=== PATIENT | male | born 2000 | race Two or more races ===

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

== ENCOUNTER 2020-01-11 17:35 | Emergency (ER) | payer OTHER ==
[~2020-01-11] VITALS: Ht 170.2 cm; Wt 86.2 kg
[2020-01-11 17:41] VITALS: BP 149/84
--- NOTE | 2020-01-11 18:51 | NUR ---
Pt aware of plan, R eye soaked with petroleum and saline as ordered
--- NOTE | 2020-01-11 19:10 | NUR ---
Bedside/warm hand off given to Linda
--- NOTE | 2020-01-11 19:22 | NUR ---
PT RECEIVED FROM CLAUDINE MCCORMACK. NO RESP DISTRESS. EYE STILL BEING SOAKED WITH NS
--- NOTE | 2020-01-11 20:00 | NUR ---
Patient does not wish to proceed with medical care recommended by PEARL ODELL. Patient given information related to possible complications, up to and including , which could occur as a result of leaving the hospital at this time. Patient verbalizes understanding of risks involved due to leaving against medical advice. Patient has signed AMA form.
== END 2020-01-11 20:01 | disposition left against medical advice (07) ==
LOC: ER 17:38
DX: S05.8X1A Other injuries of right eye and orbit, initial encounter (principal); X58.XXXA Exposure to other specified factors, initial encounter; Y93.89 Activity, other specified; Y92.89 Other specified places as the place of occurrence of the external cause; Y99.8 Other external cause status

== ENCOUNTER 2020-01-12 06:03 | Emergency (ER) | payer MEDICAID, OTHER ==
[~2020-01-12] VITALS: Ht 175.3 cm; Wt 81.6 kg
[2020-01-12 06:23] VITALS: BP 139/73
[2020-01-12] MEDS ORDERED: ERYTHROMYCIN BASE OPHTH 3.5 GM TUBE OP ONE (06:30)
[2020-01-12] MEDS ORDERED: CIPROFLOXACIN HCL 0.3% 5 ML BOTTLE RIGHTEYE STA (06:31)
--- NOTE | 2020-01-12 06:40 | NUR ---
PATIENT CAME TO ER BED 9 C/O RIGHT EYE ISSUE. PATIENT STATES THAT HE WAS USING SUPER-GLUE WHEN HE TRIED TO OPEN THE CONTAINER, THE SUPER-GLUE RICHOCHETTED INTO HIS RIGHT EYE. PATIENT STATES THAT HE IS UNABLE TO OPEN HIS RIGHT EYE. AAOX4. NO SOB. BREATHING EVENLY AND UNLABORED ON ROOM AIR.
[2020-01-12] MEDS ORDERED: ERYTHROMYCIN BASE OPHTH 3.5 GM TUBE ONE (06:42)
--- NOTE | 2020-01-12 07:00 | NUR ---
PHARMACY CALLED FOR OFLAXCIN MEDICATION
[2020-01-12] MEDS ORDERED: OFLOXACIN 0.3% OPHTH 5 ML BOTTLE RIGHTEYE ONE (07:30)
--- NOTE | 2020-01-12 07:31 | NUR ---
Patient discharged to home in stable condition. Written and verbal after care instructions given. Patient verbalizes understanding of instruction.
== END 2020-01-12 07:32 | disposition home or self-care (01) ==
LOC: ER 06:04
DX: S05.8X1A Other injuries of right eye and orbit, initial encounter (principal); X58.XXXA Exposure to other specified factors, initial encounter; Y93.89 Activity, other specified; Y92.89 Other specified places as the place of occurrence of the external cause; Y99.8 Other external cause status

== ENCOUNTER 2020-01-14 20:42 | Emergency (ER) | payer MEDICAID ==
[~2020-01-14] VITALS: Ht 175.3 cm; Wt 81.6 kg
[2020-01-14 20:49] VITALS: BP 133/81
[2020-01-14] MEDS ORDERED: HYDROCODONE/APAP 5/325MG 1 EACH TABLET ONE (21:09)
[2020-01-14] MEDS ORDERED: HYDROCODONE/APAP 5/325MG 1 EACH TABLET PO ONE (21:30)
== END 2020-01-14 21:11 | disposition home or self-care (01) ==
LOC: ER 20:42
DX: L05.91 Pilonidal cyst without abscess (principal)

== ENCOUNTER 2020-01-17 15:26 | Emergency (ER) | payer MEDICAID ==
[~2020-01-17] VITALS: Ht 170.2 cm; Wt 81.6 kg
[2020-01-17] MEDS ORDERED: LIDOCAINE /MPF 1% VIAL 5 ML VIAL ONE (15:49)
--- NOTE | 2020-01-17 16:41 | NUR ---
I&D done by heydi hurt. pt tolerated procedure well. wound care provided. d/c in stable condition.
[2020-01-17 16:44] VITALS: BP 125/66
== END 2020-01-17 16:45 | disposition home or self-care (01) ==
LOC: ER 15:34
DX: L05.01 Pilonidal cyst with abscess (principal)
CPT/HCPCS: 10080; 99284; A6403; A6407; J3490

== ENCOUNTER 2021-04-14 09:31 | Emergency (ER) | payer MEDICAID ==
[~2021-04-14] VITALS: Ht 172.7 cm; Wt 79.4 kg
--- NOTE | 2021-04-14 09:45 | NUR ---
CALLED IN ED WAITING ROOM, NO RESPONSE.
[2021-04-14 10:16] VITALS: BP 143/76
--- NOTE | 2021-04-14 10:29 | NUR ---
SEEN BY DR. PAYNE, MEDICATED ORDERED
[2021-04-14] MEDS ORDERED: IBUPROFEN 400 MG TABLET PO ONE (10:30)
[2021-04-14] MEDS ORDERED: IBUPROFEN 400 MG TABLET ONE (10:33)
[2021-04-14] MEDS ORDERED: METH-647 GT (10:57)
[2021-04-14] MEDS ORDERED: IBUP-1957 PO (10:57)
--- NOTE | 2021-04-14 11:02 | NUR ---
Patient discharged to home in stable condition. Written and verbal after care instructions given. Patient verbalizes understanding of instruction.
== END 2021-04-14 11:02 | disposition home or self-care (01) ==
LOC: ER 09:31
DX: S39.012A Strain of muscle, fascia and tendon of lower back, initial encounter (principal); F17.200 Nicotine dependence, unspecified, uncomplicated; V49.49XA Driver injured in collision with other motor vehicles in traffic accident, initial encounter; Y93.89 Activity, other specified; Y92.488 Other paved roadways as the place of occurrence of the external cause; Y99.8 Other external cause status
CPT/HCPCS: 72100-TC